=== PATIENT | female | born 1955 | race Caucasian/White ===

== ENCOUNTER 2016-10-23 18:42 | Emergency (ER) | payer OTHER ==
[~2016-10-23 18:42] MED LIST: ACIDOPHILUS1 CHW; AMARYL4 MG PO; ASPIRIN ADULT L81 MG PO; CALCIUM CITRAT250 MG PO; COREG3.125 MG PO; DUREZOL0.05 % OP; FUROSEMIDE40 MG PO; LANOXIN EQUIVALENT PO; LANTUS SOL100 UNITS/ SC; LIPITOR20 MG PO; MV-ONE; NATURAL VITA100 UNIT; NEURONTIN600 MG PO; OMEGA; PLAVIX75 MG PO; POTASSIUM CHLO10 ME2 PO; PRILOSEC10 MG; ROBAXIN500 M1 PO; SYSTANE OP; VITA-C; VITAMIN D-31000 UNIT PO; ZESTRIL10 MG PO; [UNRECOGNIZED DRUG - OTHER]
--- NOTE | 2016-10-23 21:19 | ED NURSING NOTES ---
Clinical Report - Nurses [facility] [address] [place] [address] 10/23/2016 18:42 [id number] Triage time 18:57. Acuity: LEVEL 3. Chief Complaint: LEFT LOWER EXTREMITY PAIN. Location of symptoms- upper and lower back (with radiation to the right leg) ("Leg just gave out, after a sharp pain. Now feels like a toothache "). Alert. No acute distress. SEPSIS SCREEN: Sepsis Screen: negative. Negative (no infection suspected/documented). ALFONSO COMA SCORE: [place] Coma Scale: 15- eyes open spontaneously (4); best verbal response- oriented x 4 (5); best motor response- obeys commands (6). --19:09 Aggie Salazar R.N. 18:57 10/23/16. BP: 144/57. HR: 57. RR: 20. O2 saturation: 98%. Temp: 98.1 F. Pain level now: 5/10. Additional comments: 03/05 with wt bearing . --19:09 Aggie Salazar R.N. 18:57 10/23/16. BP: 144/57. HR: 57. RR: 20. O2 saturation: 98%. Temp: 98.1 F. Pain level now: 5/10. Additional comments: 03/05 with wt bearing . --19:09 Aggie Salazar R.N. Weight: 110.6 kg stated. Height/Length: 62 inches Per Patient. BMI: 44.6. --19:07 Aggie Salazar R.N. Medications Aspirin Oral (Tablet Chewable 81 mg) 1 tablet, daily. Cardizem CD Oral (Capsule Extended Release 24 Hour 120 mg) 1 capsule. Durezol Ophthalmic, daily. Furosemide Oral 40 mg, daily. Gabapentin Oral 600mg, 2x a day as needed. Lantus Subcutaneous 44 units, every AM. Lipitor Oral 20 mg, daily. Lisinopril Oral 20 mg, daily. Potassium Oral 10meq , daily. Robaxin Oral 500 mg, Q6H as needed. Vitamin D Oral 50,000U x1 a week. Xarelto Oral (Tablet 20 mg) 1 tablet, daily. --19:03 Aggie Salazar R.N. Multaq Oral (Tablet 400 mg) 1 tablet, BID w/ paameters. --19:04 Aggie Salazar R.N. Allergies Cipro. Codeine. Darvocet. Erythromycin. Penicillin. Percocet. Shell fish products. Sulfur. Vancomycin HCl. --19:03 Aggie Salazar R.N. History Arrived by private vehicle. Historian: patient. Primary physician (adolph). No injury occurred. This occurred just prior to arrival. It is described as radiating (down and around to the back). She has had moderate trouble walking (uses a cane to walk). She has had similar symptoms previously. 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 SOCIAL HX: Never smoker. Occasional alcohol use. No drug use. ABUSE ASSESSMENT: No report of abuse. FALL RISK ASSESSMENT: Fall risk assessment completed. No fall risk identified. NUTRITIONAL RISK ASSESSMENT: The nutritional risk assessment revealed no deficiencies. LEARNING NEEDS ASSESSMENT: The learning needs assessment revealed no barriers. FUNCTIONAL ASSESSMENT: Functional assessment performed: uses cane. SKIN INTEGRITY ASSESSMENT: Skin integrity risk assessment completed. No skin integrity risk identified. --19:09 Aggie Salazar R.N. PROBLEMS: Chest Wall Pain. Hyperglycemia. Atrial Fibrillation. Coronary Artery Disease. Palpitations. Hematoma. Staph Infections. Colitis. Glaucoma. Hypertension. Diabetes Mellitus. --19:06 Aggie Salazar R.N. The following entry was modified by Elin Barnhart MD, 21:29 Reason - duplicate <<STRICKEN ENTRY-- Heart Disease. --21:28 Elin Barnhart MD --END STRIKE>> The following entry was modified by Elin Barnhart MD, 21:29 Reason - misspelled <<STRICKEN ENTRY-- Slep apnea . --19:07 Elin Barnhart MD --END STRIKE>>. ADDITIONAL SURGERIES: "major reconstruction, of rib and cartilage" . Arthrectomy. Cardiac catheterization x 8. Cardiac stent . Cataract Surgery. Cholecystectomy. Colonoscopy. Colostomy. Coronary Artery Bypass Graft. . Endoscopy. Hysterectomy. Ovarian cyst removal. Rotator Cuff Surgery. Shunt in right eye. Sinus Surgery. Victrectomy b/l eyes. --19:06 Aggie Salazar R.N. The following entry was struck by Elin Barnhart MD, 21:29 Reason - duplicate <<STRICKEN ENTRY-- Gallbladder Surgery. --:29 Elin Barnhart MD --END STRIKE>>. Interventions ID band on patient. To room. --19:09 Aggie Salazar R.N. PHYSICAL ASSESSMENT To room via wheelchair. Patient gowned. EXTREMITIES: Limited ROM present. Left knee: tenderness and erythema (pain). SKIN: Skin intact. Skin is warm and dry. --19:10 Aggie Salazar R.N. NURSING PROGRESS NOTES Extremity elevated. Patient gowned. Two patient identifiers checked. Call light placed in reach. Side rails up x 1. Bed placed in lowest position. Brakes of bed on. Patient ready for evaluation. --19:10 Aggie Salazar R.N. ( POC at the bedside 53mg/dl, sandwich and juice given, patient eating.). --20:16 Aggie Salazar R.N. ( Recheck at 2039). --20:16 Aggie Salazar R.N. ( POCT Glucose 115mg/dl). --20:42 Erika Herrera ER Tech1 Immobilizer applied to the left knee by fuel technician; distal pulses intact, sensation intact and motor function within normal limits. Patient fit with new crutches. Crutch training performed by Lee Silber; the patient demonstrated proper use. --21:09 Erika Herrera ER Tech1. DISPOSITION / DISCHARGE Departure time: 21:35. Condition at departure: stable. The goals identified in the patient's plan of care were met. No learning barriers present. Discharge instructions provided and reviewed with the patient. Patient verbalized understanding. Written instructions provided in Japanese. ( Anne verbalizes understanding of all d/c instructions including need to f/u with PCP. She has no questions and voices no concerns at this time.). The patient was discharged by the nurse practitioner. She was discharged home and accompanied by spouse. She left the Emergency Department on crutches and via private vehicle. Spouse driving. ALFONSO COMA SCORE: [place] Coma Scale: 15- eyes open spontaneously (4); best verbal response- oriented x 4 (5); best motor response- obeys commands (6). --21:35 Sravan Patel R.N. 21:33 10/23/16. BP: 130/50 (large adult cuff) taken on the left arm, via an automated monitor, while sitting. HR: 57 (bradycardic). RR: 14 (regular, unlabored and normal). O2 saturation: 98% on room air. Temp: 97.9 F (oral). Pain level now: 11/02. --21:35 Sravan Patel R.N. Locked/Released at 10/23/2016 21:35 by Sravan Patel R.N.
--- NOTE | 2016-10-23 21:19 | ED CLINICAL REPORT ---
Clinical Report - Physicians/Mid Levels [facility] [address] [place] [address] 10/23/2016 18:42 Patient: ANNE HOOD Time Seen: 18:56. Arrived- By private vehicle. Historian- patient. HISTORY OF PRESENT ILLNESS Chief Complaint: Injury to left knee. The injury happened today. Occurred on a street. ( the patient states that she was walking when her knee "just gave out on her". Patient states she did not fall the way to the ground and was able to catch herself; however the force of flexion did cause a sharp pain initially in the patient's left lateral knee. Patient did not feel a pop or a crack. Patient states it hurts to bear weight. She normally walks with cane. Patient has existing problems with her left knee and has been in physical therapy for this. She states it is the lateral structures that chronically bother her, and this is same area where she is having pain now.). Patient is experiencing moderate pain. No other injury. REVIEW OF SYSTEMS The patient complains of pain on weight bearing. No swelling, tingling, weakness, numbness or suspected foreign body. No skin laceration. All systems otherwise negative, except as recorded above. PAST HISTORY Problems: Sleep Apnea. Chest Wall Pain. Hyperglycemia. Atrial Fibrillation. Coronary Artery Disease. Palpitations. Hematoma. Immunizations. Colitis. Glaucoma. Hypertension. Diabetes Mellitus. Additional Surgeries: "major reconstruction, of rib and cartilage" . Arthrectomy. Cardiac catheterization x 8. Cardiac stent . Cataract Surgery. Cholecystectomy. Colonoscopy. Colostomy. Coronary Artery Bypass Graft. . Endoscopy. Hysterectomy. Ovarian cyst removal. Rotator Cuff Surgery. Shunt in right eye. Sinus Surgery. Victrectomy b/l eyes. Medications: Multaq Oral (Tablet 400 mg) 1 tablet, BID w/ paameters. Aspirin Oral (Tablet Chewable 81 mg) 1 tablet, daily. Cardizem CD Oral (Capsule Extended Release 24 Hour 120 mg) 1 capsule. Durezol Ophthalmic, daily. Furosemide Oral 40 mg, daily. Gabapentin Oral 600mg, 2x a day as needed. Lantus Subcutaneous 44 units, every AM. Lipitor Oral 20 mg, daily. Lisinopril Oral 20 mg, daily. Potassium Oral 10meq , daily. Robaxin Oral 500 mg, Q6H as needed. Vitamin D Oral 50,000U x1 a week. Xarelto Oral (Tablet 20 mg) 1 tablet, daily. Allergies: Cipro. Codeine. Darvocet. Erythromycin. Penicillin. Percocet. Shell fish products. Sulfur. Vancomycin HCl. SOCIAL HISTORY Never smoker. Occasional alcohol use. No drug use. ADDITIONAL NOTES The nursing notes have been reviewed. PHYSICAL EXAM Vital Signs: 10/23/2016 18:57 BP: 144/57. HR: 57. RR: 20. O2 saturation: 98%. Temp: 98.1 F. Pain level now: 11/02. Have been reviewed. Appearance: Alert. Oriented X3. No acute distress. (Patient is morbidly obese.). Head: Head atraumatic. Eyes: Pupils equal, round and reactive to light. Eyes normal inspection. ENT: Nose normal. Neck: No decreased ROM in the neck. CVS: Pulses normal. Respiratory: No respiratory distress. Skin: Skin intact. Skin warm and dry. Normal skin color. Normal skin turgor. Extremities: Left knee: moderate tenderness located in the lateral joint line and lateral collateral ligament. Limited ROM secondary to pain (diminished flexion). Neurovascular intact distally. No ligamentous laxity present. No joint effusion. No erythema, swelling, laceration, abrasion or ecchymosis. No puncture wound, foreign body or deformity. Lower extremity exam otherwise negative. Extremities otherwise negative. Neuro, Vascular and Tendons: Vascular status intact. Sensation intact. Motor intact. Tendon function intact. Gait: Gait not tested due to pain. Neuro: No motor deficit. No sensory deficit. (Grossly oriented.). LABS, X-RAYS, AND EKG Lt Knee X-ray: No fracture. Normal alignment. No bony lesion, air in the soft tissue or foreign body. Soft tissues normal. Joint spaces normal. Views: AP, lateral and oblique. Technique: good. The X-rays were independently viewed by me and interpreted contemporaneously by me. Prior films were not available for comparison. Pulse Oximetry: 10/23/2016 18:57 O2 saturation: 98%. (FIO2 - room air). Interpretation: normal. PROGRESS AND PROCEDURES Course of Care: Patient declined analgesia in the emergency department. She did request to have her blood sugar checked as she felt as though was dropping low. This was done and patient's blood sugar was found to be in the 50s. She is given a sandwich and juice after which her blood sugar was in the low 100s. An x-ray was performed of her left knee and found to be normal. I did discuss with the patient that I feel she is likely strained or sprained structures surrounding her left knee on the lateral aspect. The patient is oriented therapy for this problem and has an appointment on Monday, which is 2 days from now, for another physical therapy visit. I have given her a knee immobilizer tonight which I have asked her to wear until she sees her physical therapist on Monday. At that time, her ability to function without the brace can be reevaluated and patient may either continue to wear the brace or work with the therapist on further treatment of her lateral knee. The patient's knee is stable and no emergent condition has been identified. Patient counseled in person regarding the patient's stable condition, test results, diagnosis and need for follow-up. Concerns were addressed. Old medical records reviewed. Disposition: Discharged. Condition: stable and improved. CLINICAL IMPRESSION Sprain of the lateral collateral ligament of the left knee. INSTRUCTIONS Apply ice for 20 minutes three times a day as needed and until better. Don't apply ice directly to skin and don't use while asleep. Wear knee immobilizer as needed and until better. You may walk and bear weight as tolerated. (Your x-rays look very good--the bones are well-aligned, and there are no breaks. Please wear the knee brace until you see your physical therapist on Monday. You may continue to use this afterward if your knee continues to bother you.). Warnings: GENERAL WARNINGS: Return or contact your physician immediately if your condition worsens or changes unexpectedly, if not improving as expected, or if other problems arise. Your Current Medications: CONTINUE TAKING THE FOLLOWING MEDICATIONS: Aspirin Oral : Tablet Chewable 81 mg, 1 tablet daily. Cardizem CD Oral : Capsule Extended Release 24 Hour 120 mg, 1 capsule. Durezol Ophthalmic : daily. Furosemide Oral : 40 mg daily. Gabapentin Oral : 600mg 2x a day, prn. Lantus Subcutaneous : 44 units every AM. Lipitor Oral : 20 mg daily. Lisinopril Oral : 20 mg daily. Multaq Oral : Tablet 400 mg, 1 tablet BID w/ paameters. Potassium Oral : 10meq daily. Robaxin Oral : 500 mg Q6H, prn. Vitamin D Oral : 50,000U x1 a week. Xarelto Oral : Tablet 20 mg, 1 tablet daily. Understanding of the discharge instructions verbalized by patient. Follow-up with: Viry Han MD, Family Practice, , [facility], [address] [place] [address] Follow up in about one week if not better. (Electronically signed by Elin Barnhart MD 10/23/2016 21:41)
--- NOTE | 2016-10-23 21:19 | ED ORDER SUMMARY ---
..... 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 (21:35 10/23/2016)] [Electronically signed by Elin Barnhart MD (21:41 10/23/2016)] [Electronically locked/signed by Sravan Patel R.N. (21:35 10/23/2016)]
--- NOTE | 2016-10-23 21:19 | ED NURSING NOTES ---
Clinical Report - Nurses [facility] [address] [place] [address] 10/23/2016 18:42 [id number] Triage time 18:57. Acuity: LEVEL 3. Chief Complaint: LEFT LOWER EXTREMITY PAIN. Location of symptoms- upper and lower back (with radiation to the right leg) ("Leg just gave out, after a sharp pain. Now feels like a toothache "). Alert. No acute distress. SEPSIS SCREEN: Sepsis Screen: negative. Negative (no infection suspected/documented). ALFONSO COMA SCORE: [place] Coma Scale: 15- eyes open spontaneously (4); best verbal response- oriented x 4 (5); best motor response- obeys commands (6). --19:09 Aggie Salazar R.N. 18:57 10/23/16. BP: 144/57. HR: 57. RR: 20. O2 saturation: 98%. Temp: 98.1 F. Pain level now: 5/10. Additional comments: 03/05 with wt bearing . --19:09 Aggie Salazar R.N. 18:57 10/23/16. BP: 144/57. HR: 57. RR: 20. O2 saturation: 98%. Temp: 98.1 F. Pain level now: 5/10. Additional comments: 03/05 with wt bearing . --19:09 Aggie Salazar R.N. Weight: 110.6 kg stated. Height/Length: 62 inches Per Patient. BMI: 44.6. --19:07 Aggie Salazar R.N. Medications Aspirin Oral (Tablet Chewable 81 mg) 1 tablet, daily. Cardizem CD Oral (Capsule Extended Release 24 Hour 120 mg) 1 capsule. Durezol Ophthalmic, daily. Furosemide Oral 40 mg, daily. Gabapentin Oral 600mg, 2x a day as needed. Lantus Subcutaneous 44 units, every AM. Lipitor Oral 20 mg, daily. Lisinopril Oral 20 mg, daily. Potassium Oral 10meq , daily. Robaxin Oral 500 mg, Q6H as needed. Vitamin D Oral 50,000U x1 a week. Xarelto Oral (Tablet 20 mg) 1 tablet, daily. --19:03 Aggie Salazar R.N. Multaq Oral (Tablet 400 mg) 1 tablet, BID w/ paameters. --19:04 Aggie Salazar R.N. Allergies Cipro. Codeine. Darvocet. Erythromycin. Penicillin. Percocet. Shell fish products. Sulfur. Vancomycin HCl. --19:03 Aggie Salazar R.N. History Arrived by private vehicle. Historian: patient. Primary physician (adolph). No injury occurred. This occurred just prior to arrival. It is described as radiating (down and around to the back). She has had moderate trouble walking (uses a cane to walk). She has had similar symptoms previously. 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 SOCIAL HX: Never smoker. Occasional alcohol use. No drug use. ABUSE ASSESSMENT: No report of abuse. FALL RISK ASSESSMENT: Fall risk assessment completed. No fall risk identified. NUTRITIONAL RISK ASSESSMENT: The nutritional risk assessment revealed no deficiencies. LEARNING NEEDS ASSESSMENT: The learning needs assessment revealed no barriers. FUNCTIONAL ASSESSMENT: Functional assessment performed: uses cane. SKIN INTEGRITY ASSESSMENT: Skin integrity risk assessment completed. No skin integrity risk identified. --19:09 Aggie Salazar R.N. PROBLEMS: Chest Wall Pain. Hyperglycemia. Atrial Fibrillation. Coronary Artery Disease. Palpitations. Hematoma. Staph Infections. Colitis. Glaucoma. Hypertension. Diabetes Mellitus. --19:06 Aggie Salazar R.N. The following entry was modified by Elin Barnhart MD, 21:29 Reason - duplicate <<STRICKEN ENTRY-- Heart Disease. --21:28 Elin Barnhart MD --END STRIKE>> The following entry was modified by Elin Barnhart MD, 21:29 Reason - misspelled <<STRICKEN ENTRY-- Slep apnea . --19:07 Elin Barnhart MD --END STRIKE>>. ADDITIONAL SURGERIES: "major reconstruction, of rib and cartilage" . Arthrectomy. Cardiac catheterization x 8. Cardiac stent . Cataract Surgery. Cholecystectomy. Colonoscopy. Colostomy. Coronary Artery Bypass Graft. . Endoscopy. Hysterectomy. Ovarian cyst removal. Rotator Cuff Surgery. Shunt in right eye. Sinus Surgery. Victrectomy b/l eyes. --19:06 Aggie Salazar R.N. The following entry was struck by Elin Barnhart MD, 21:29 Reason - duplicate <<STRICKEN ENTRY-- Gallbladder Surgery. --:29 Elin Barnhart MD --END STRIKE>>. Interventions ID band on patient. To room. --19:09 Aggie Salazar R.N. PHYSICAL ASSESSMENT To room via wheelchair. Patient gowned. EXTREMITIES: Limited ROM present. Left knee: tenderness and erythema (pain). SKIN: Skin intact. Skin is warm and dry. --19:10 Aggie Salazar R.N. NURSING PROGRESS NOTES Extremity elevated. Patient gowned. Two patient identifiers checked. Call light placed in reach. Side rails up x 1. Bed placed in lowest position. Brakes of bed on. Patient ready for evaluation. --19:10 Aggie Salazar R.N. ( POC at the bedside 53mg/dl, sandwich and juice given, patient eating.). --20:16 Aggie Salazar R.N. ( Recheck at 2039). --20:16 Aggie Salazar R.N. ( POCT Glucose 115mg/dl). --20:42 Erika Herrera ER Tech1 Immobilizer applied to the left knee by diesel service technician; distal pulses intact, sensation intact and motor function within normal limits. Patient fit with new crutches. Crutch training performed by [employer]; the patient demonstrated proper use. --21:09 Erika Herrera ER Tech1. DISPOSITION / DISCHARGE Departure time: 21:35. Condition at departure: stable. The goals identified in the patient's plan of care were met. No learning barriers present. Discharge instructions provided and reviewed with the patient. Patient verbalized understanding. Written instructions provided in Wolof. ( Anne verbalizes understanding of all d/c instructions including need to f/u with PCP. She has no questions and voices no concerns at this time.). The patient was discharged by the nurse practitioner. She was discharged home and accompanied by spouse. She left the Emergency Department on crutches and via private vehicle. Spouse driving. ALFONSO COMA SCORE: [place] Coma Scale: 15- eyes open spontaneously (4); best verbal response- oriented x 4 (5); best motor response- obeys commands (6). --21:35 Sravan Patel R.N. 21:33 10/23/16. BP: 130/50 (large adult cuff) taken on the left arm, via an automated monitor, while sitting. HR: 57 (bradycardic). RR: 14 (regular, unlabored and normal). O2 saturation: 98% on room air. Temp: 97.9 F (oral). Pain level now: 11/02. --21:35 Sravan Patel R.N. Locked/Released at 10/23/2016 21:35 by Sravan Patel R.N.
--- NOTE | 2016-10-23 21:19 | ED ORDER SUMMARY ---
..... 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 (21:35 10/23/2016)] [Electronically signed by Elin Barnhart MD (21:41 10/23/2016)] [Electronically locked/signed by Sravan Patel R.N. (21:35 10/23/2016)]
--- NOTE | 2016-10-23 21:20 | DIAGNOSTIC IMAGING REPORT ---
PROCEDURE: XR KNEE 4 VIEWS - LEFT INDICATION: TRAUMA/INJURY TECHNIQUE: Four views. COMPARISON: None. FINDINGS: Mild spur formation of all three joint compartments. Dystrophic soft tissue calcification laterally. No acute fracture. No effusion. Extensive calcific atherosclerosis. IMPRESSION: 1. No acute changes 2. Mild degenerative changes
--- NOTE | 2016-10-23 21:41 | ED MED RECONCILIATION SUMMARY ---
Patient: ANNE HOOD Medication Reconciliation Report [facility] VisitID: [id number] [place] [address] 61y, F Registration Date/Time: 10/23/2016 Weight: 110.6 kg Height/Length: 62 in. BMI: 44.6 ALLERGIES: Cipro, Codeine, Darvocet, Erythromycin, Penicillin, Percocet, Shell fish products, Sulfur, Vancomycin HCl The patient's Home Medications are listed below: CONTINUE TAKING THE FOLLOWING MEDICATIONS: Aspirin Oral (81 mg) 1 tablet, daily Cardizem CD Oral (120 mg) 1 capsule Durezol Ophthalmic, daily Furosemide Oral 40 mg, daily Gabapentin Oral 600mg, 2x a day Lantus Subcutaneous 44 units, every AM Lipitor Oral 20 mg, daily Lisinopril Oral 20 mg, daily Multaq Oral (400 mg) 1 tablet, BID w/ paameters Potassium Oral 10meq , daily Robaxin Oral 500 mg, Q6H Vitamin D Oral 50,000U x1 a week Xarelto Oral (20 mg) 1 tablet, daily The source(s) of the original Home Medication information: Not obtained. The following Medications were given to the patient in the Emergency Department: None. The following Medications were prescribed to the patient: None.
--- NOTE | 2016-10-23 21:41 | ED DISCHARGE INSTRUCTIONS ---
Patient: ANNE HOOD General Instructions Located Within [facility] VisitID: [id number] [place] [address] 61y, F Registration Date/Time: 10/23/2016 Sprain of the lateral collateral ligament of the left knee. INSTRUCTIONS Apply ice for 20 minutes three times a day as needed and until better. Don't apply ice directly to skin and don't use while asleep. Wear knee immobilizer as needed and until better. You may walk and bear weight as tolerated. (Your x-rays look very good--the bones are well-aligned, and there are no breaks. Please wear the knee brace until you see your physical therapist on Monday. You may continue to use this afterward if your knee continues to bother you.). Warnings: GENERAL WARNINGS: Return or contact your physician immediately if your condition worsens or changes unexpectedly, if not improving as expected, or if other problems arise. Your Current Medications: CONTINUE TAKING THE FOLLOWING MEDICATIONS: Aspirin Oral : Tablet Chewable 81 mg, 1 tablet daily. Cardizem CD Oral : Capsule Extended Release 24 Hour 120 mg, 1 capsule. Durezol Ophthalmic : daily. Furosemide Oral : 40 mg daily. Gabapentin Oral : 600mg 2x a day, prn. Lantus Subcutaneous : 44 units every AM. Lipitor Oral : 20 mg daily. Lisinopril Oral : 20 mg daily. Multaq Oral : Tablet 400 mg, 1 tablet BID w/ paameters. Potassium Oral : 10meq daily. Robaxin Oral : 500 mg Q6H, prn. Vitamin D Oral : 50,000U x1 a week. Xarelto Oral : Tablet 20 mg, 1 tablet daily. Understanding of the discharge instructions verbalized by patient. Follow-up with: Viry Han MD, [facility], , [facility], [address] [place] [address] Follow up in about one week if not better. ADDITIONAL INFORMATION Knee Sprain, Collateral Ligaments The knee is a hinge joint supported by four strong ligaments. The two ligaments inside the knee (cruciate ligaments) protect this joint from excess forward and backward movement. The ligaments on the outside of the joint (collateral ligaments) prevent qguz-xg-cphj motion. The medial collateral ligament (MCL) is located on the inner side of the joint; and the lateral collateral ligament (LCL) is on the outer side of the joint. You have sprained one or both collateral ligaments. A sprain is a tearing of a ligament. The tear may be partial or complete. Diagnosis is made by physical exam. In the case of an acute injury, the knee may be too swollen or painful to examine fully. A more accurate exam can be performed after the initial swelling goes down. Symptoms of a knee sprain include immediate knee swelling, pain, and difficulty walking.Initial treatment includes resting the joint, splinting to reduce movement of the joint, use of ice to reduce swelling and pain. Non-steroidal anti-inflammatory drugs (NSAIDs), such as ibuprofen, may be prescribed. Most sprains will heal in one to four weeks.A severe injury can take three to four months to heal and requires rehabilitation exercises. Surgery is usually not required for sprains involving only the collateral ligaments. Home care The following guidelines will help you care for your injury at home: Stay off the injured leg as much as possible until you can walk on it without pain. If you have a lot of pain while walking, crutches, or a walker may be prescribed. (These can be rented or purchased at many pharmacies and surgical or orthopedic supply stores.) Follow your doctor's advice regarding when to begin bearing weight on that leg. If you were given a zcmy-jrf-etbw closure knee brace, you can remove this to bathe, but leave it in place when walking, sitting, or lying down (unless told otherwise). Apply an ice pack (ice cubes in a plastic bag, wrapped in a towel) over the injured area for 20 minutes every 12 hours the first day. If a himu-bjb-ozjc closure knee brace was applied, you can open this to apply the ice pack directly to the knee. Continue with ice packs 34 times a day for the next two days, then as needed for the relief of pain and swelling. You may use acetaminophen or ibuprofen to control pain, unless another pain medicine was prescribed. If you have chronic liver or kidney disease or ever had a stomach ulcer or GI bleeding, talk with your doctor before using these medicines. Follow-up care Follow up with the referral doctor, or as advised by our staff. Any X-rays you had today dont show any broken bones, breaks, or fractures. Sometimes fractures dont show up on the first X-ray. Bruises and sprains can sometimes hurt as much as a fracture. These injuries can take time to heal completely. If your symptoms dont improve or they get worse, talk with your doctor. You may need a repeat X-ray. When to seek medical care Get prompt medical attention if any of the following occur: Pain or swelling worsens Shortness of breath or chest pain Swelling or redness or pain of the calf or thigh You have been given the following additional information: Knee Sprain: Collateral Ligaments You may walk and bear weight as tolerated. (Electronically signed by Elin Barnhart MD 10/23/2016 21:41)
--- NOTE | 2016-10-23 21:41 | ED DISCHARGE INSTRUCTIONS ---
Patient: ANNE HOOD General Instructions [facility] VisitID: [id number] [place] [address] 61y, F Registration Date/Time: 10/23/2016 Sprain of the lateral collateral ligament of the left knee. INSTRUCTIONS Apply ice for 20 minutes three times a day as needed and until better. Don't apply ice directly to skin and don't use while asleep. Wear knee immobilizer as needed and until better. You may walk and bear weight as tolerated. (Your x-rays look very good--the bones are well-aligned, and there are no breaks. Please wear the knee brace until you see your physical therapist on Monday. You may continue to use this afterward if your knee continues to bother you.). Warnings: GENERAL WARNINGS: Return or contact your physician immediately if your condition worsens or changes unexpectedly, if not improving as expected, or if other problems arise. Your Current Medications: CONTINUE TAKING THE FOLLOWING MEDICATIONS: Aspirin Oral : Tablet Chewable 81 mg, 1 tablet daily. Cardizem CD Oral : Capsule Extended Release 24 Hour 120 mg, 1 capsule. Durezol Ophthalmic : daily. Furosemide Oral : 40 mg daily. Gabapentin Oral : 600mg 2x a day, prn. Lantus Subcutaneous : 44 units every AM. Lipitor Oral : 20 mg daily. Lisinopril Oral : 20 mg daily. Multaq Oral : Tablet 400 mg, 1 tablet BID w/ paameters. Potassium Oral : 10meq daily. Robaxin Oral : 500 mg Q6H, prn. Vitamin D Oral : 50,000U x1 a week. Xarelto Oral : Tablet 20 mg, 1 tablet daily. Understanding of the discharge instructions verbalized by patient. Follow-up with: Viry Han MD, [facility], , [facility], [address] [place] [address] Follow up in about one week if not better. ADDITIONAL INFORMATION Knee Sprain, Collateral Ligaments The knee is a hinge joint supported by four strong ligaments. The two ligaments inside the knee (cruciate ligaments) protect this joint from excess forward and backward movement. The ligaments on the outside of the joint (collateral ligaments) prevent czul-of-ruow motion. The medial collateral ligament (MCL) is located on the inner side of the joint; and the lateral collateral ligament (LCL) is on the outer side of the joint. You have sprained one or both collateral ligaments. A sprain is a tearing of a ligament. The tear may be partial or complete. Diagnosis is made by physical exam. In the case of an acute injury, the knee may be too swollen or painful to examine fully. A more accurate exam can be performed after the initial swelling goes down. Symptoms of a knee sprain include immediate knee swelling, pain, and difficulty walking.Initial treatment includes resting the joint, splinting to reduce movement of the joint, use of ice to reduce swelling and pain. Non-steroidal anti-inflammatory drugs (NSAIDs), such as ibuprofen, may be prescribed. Most sprains will heal in one to four weeks.A severe injury can take three to four months to heal and requires rehabilitation exercises. Surgery is usually not required for sprains involving only the collateral ligaments. Home care The following guidelines will help you care for your injury at home: Stay off the injured leg as much as possible until you can walk on it without pain. If you have a lot of pain while walking, crutches, or a walker may be prescribed. (These can be rented or purchased at many pharmacies and surgical or orthopedic supply stores.) Follow your doctor's advice regarding when to begin bearing weight on that leg. If you were given a tpqb-wrn-nyjq closure knee brace, you can remove this to bathe, but leave it in place when walking, sitting, or lying down (unless told otherwise). Apply an ice pack (ice cubes in a plastic bag, wrapped in a towel) over the injured area for 20 minutes every 12 hours the first day. If a tdwu-egu-rztq closure knee brace was applied, you can open this to apply the ice pack directly to the knee. Continue with ice packs 34 times a day for the next two days, then as needed for the relief of pain and swelling. You may use acetaminophen or ibuprofen to control pain, unless another pain medicine was prescribed. If you have chronic liver or kidney disease or ever had a stomach ulcer or GI bleeding, talk with your doctor before using these medicines. Follow-up care Follow up with the referral doctor, or as advised by our staff. Any X-rays you had today dont show any broken bones, breaks, or fractures. Sometimes fractures dont show up on the first X-ray. Bruises and sprains can sometimes hurt as much as a fracture. These injuries can take time to heal completely. If your symptoms dont improve or they get worse, talk with your doctor. You may need a repeat X-ray. When to seek medical care Get prompt medical attention if any of the following occur: Pain or swelling worsens Shortness of breath or chest pain Swelling or redness or pain of the calf or thigh You have been given the following additional information: Knee Sprain: Collateral Ligaments You may walk and bear weight as tolerated. (Electronically signed by Elin Barnhart MD 10/23/2016 21:41)
--- NOTE | 2016-10-23 21:41 | ED MED RECONCILIATION SUMMARY ---
Patient: ANNE HOOD Medication Reconciliation Report [facility] VisitID: [id number] [place] [address] 61y, F Registration Date/Time: 10/23/2016 Weight: 110.6 kg Height/Length: 62 in. BMI: 44.6 ALLERGIES: Cipro, Codeine, Darvocet, Erythromycin, Penicillin, Percocet, Shell fish products, Sulfur, Vancomycin HCl The patient's Home Medications are listed below: CONTINUE TAKING THE FOLLOWING MEDICATIONS: Aspirin Oral (81 mg) 1 tablet, daily Cardizem CD Oral (120 mg) 1 capsule Durezol Ophthalmic, daily Furosemide Oral 40 mg, daily Gabapentin Oral 600mg, 2x a day Lantus Subcutaneous 44 units, every AM Lipitor Oral 20 mg, daily Lisinopril Oral 20 mg, daily Multaq Oral (400 mg) 1 tablet, BID w/ paameters Potassium Oral 10meq , daily Robaxin Oral 500 mg, Q6H Vitamin D Oral 50,000U x1 a week Xarelto Oral (20 mg) 1 tablet, daily The source(s) of the original Home Medication information: Not obtained. The following Medications were given to the patient in the Emergency Department: None. The following Medications were prescribed to the patient: None.
--- NOTE | 2016-10-23 21:41 | ED MAR SUMMARY ---
..... Medication Administration Record [facility] [address] [place] [id number] Patient: ANNE HOOD Visit ID: [id number] 61y, F Weight: 110.6 kg Height/Length: 62 in BMI: 44.6 ALLERGIES: Cipro, Codeine, Darvocet, Erythromycin, Penicillin, Percocet, Shell fish products, Sulfur, Vancomycin HCl
--- NOTE | 2016-10-23 21:41 | ED MAR SUMMARY ---
..... Medication Administration Record [facility] [address] [place], [place] [id number] Patient: ANNE HOOD Visit ID: [id number] 61y, F Weight: 110.6 kg Height/Length: 62 in BMI: 44.6 ALLERGIES: Cipro, Codeine, Darvocet, Erythromycin, Penicillin, Percocet, Shell fish products, Sulfur, Vancomycin HCl
== END 2016-10-23 21:35 | disposition home or self-care (01) ==
LOC: ED SRH 18:42
DX: S83.422A Sprain of lateral collateral ligament of left knee, initial encounter (principal); X50.1XXA Overexertion from prolonged static or awkward postures, initial encounter; Y93.01 Activity, walking, marching and hiking; Y92.410 Unspecified street and highway as the place of occurrence of the external cause; Y99.9 Unspecified external cause status; I10 Essential (primary) hypertension; E11.9 Type 2 diabetes mellitus without complications; Z79.4 Long term (current) use of insulin; Z79.899 Other long term (current) drug therapy; Z79.82 Long term (current) use of aspirin